=== PATIENT | female | born 1980 | race Caucasian/White ===

== ENCOUNTER → 2020-11-03 | Outpatient (CLI) | payer OTHER ==
--- NOTE | 2020-11-03 11:46 | REPVR ---
PROCEDURE INFORMATION: Exam: MR Head Without and With Contrast, Sella Exam date and time: 11/03/2020 11:20 AM Age: 40 years old Clinical indication: Abnormal findings; Abnormal lab test; Syncope and collapse; Patient HX: Elevated prolactin, dizziness, abn TECHNIQUE: Imaging protocol: MR of the head without and with intravenous contrast. Exam focused on the sella. Contrast material: PROHANCE; Contrast volume: 19 ml; Contrast route: INTRAVENOUS (IV); COMPARISON: No relevant prior studies available. FINDINGS: Limitations: The study is mildly limited due to patient motion artifact. Brain: There is no acute intracranial hemorrhage, cerebral edema, or midline shift. No restricted diffusion is present to suggest acute infarction. No enhancing lesions were identified after the administration of contrast. Cerebral ventricles: Unremarkable. No Ventriculomegaly. Paranasal sinuses: Moderate mucosal thickening is present in the left sphenoid sinus. There is minimal mucosal thickening in the maxillary and ethmoid sinuses. Pituitary gland and sella: Unremarkable. Pituitary gland is normal. No microadenoma is identified. Bones/joints: Unremarkable. IMPRESSION: 1. Mildly limited exam due to motion artifact 2. No acute abnormality. Electronically signed by: John Kulkarni On 11/03/2020 11:47:05 AM
== END ==
LOC: M PLARAD 09:08
PROVIDERS: ATTEND Obstetrics & Gynecology
DX: E22.1 Hyperprolactinemia (principal)

== ENCOUNTER 2023-06-20 12:58 | Day surgery (SDC) | payer OTHER ==
[~2023-06-20] VITALS: Ht 157.5 cm; Wt 100.2 kg
[~2023-06-20 12:58] MED LIST: BIOT1000 PO; CETI-24 PO; FAMO40TA3 PO; MAGN64TASA PO; NORE5TAB PO; NOXI1TAB PO; NS 1,000 ML IV ONE; PANT40TA29 PO; PHEN-239 PO; VITA250T18 PO
[2023-06-20] MEDS ORDERED: fentaNYL 100 MCG/2 ML INJECTION As Ordered ONE (14:30)
[2023-06-20] MEDS ORDERED: ONDANSETRON 4MG 2ML VIAL As Ordered ONE (14:31)
[2023-06-20] MEDS ORDERED: propofoL 200 MG/20 ML VIAL As Ordered ONE ×2 (14:32→14:50)
[2023-06-20] MEDS ORDERED: LIDOCAINE 2% 100MG/5ML SDV (FOR ANES.) As Ordered ONE (14:32)
[2023-06-20 14:54] VITALS: TEMP 97.9
[2023-06-20 15:20] VITALS: BP 125/76; O2SAT 99
== END 2023-06-20 15:33 | disposition home or self-care (01) ==
LOC: M OPP 12:58
PROVIDERS: ATTEND Internal Medicine Gastroenterology
DX: K29.70 Gastritis, unspecified, without bleeding (principal); K20.0 Eosinophilic esophagitis; K31.A0 Gastric intestinal metaplasia, unspecified; Z79.1 Long term (current) use of non-steroidal anti-inflammatories (NSAID); Z79.899 Other long term (current) drug therapy; Z91.010 Allergy to peanuts
CPT/HCPCS: 43239; 88305; 91035; J2405; J3010

== ENCOUNTER 2023-07-23 14:19 | Outpatient (CLI) | payer OTHER ==
[~2023-07-23] VITALS: Ht 157.5 cm; Wt 99.4 kg
[~2023-07-23 14:19] MED LIST changes: +ALBUTEROL SULFATE 2.5MG/0.5ML INH NEB SOLN INH PRN; +EPINEPHrine INJ 1 MG/ML 1ML AMP IM PRN; -NS 1,000 ML IV ONE; +diphenhydrAMINE 50MG/ML VIAL IV PRN; +methylPREDNISolone 125MG 2ML VIAL IV PRN
[2023-07-23 14:40] VITALS: BP 132/73; O2SAT 98
[2023-07-23] MEDS ORDERED: NS 1,000 ML IV SCH (15:00)
[2023-07-23] MEDS ORDERED: diphenhydrAMINE 50MG CAP PO ONE (15:00)
[2023-07-23] MEDS ORDERED: ACETAMINOPHEN TAB 650MG DOSE (2X325MG) PO ONE (15:00)
[2023-07-23] MEDS ORDERED: FERRIC CARBOXYMALTOSE INJ 750 MG in NS 250 ML (>50kg) IV ONE ×3 (15:00)
[2023-07-23 17:59] VITALS: BP 114/69; O2SAT 100
== END 2023-07-23 18:00 ==
LOC: M INFU 14:19
PROVIDERS: ATTEND Family Medicine
DX: D50.9 Iron deficiency anemia, unspecified (principal); Z91.010 Allergy to peanuts
CPT/HCPCS: 96365; J1439

== ENCOUNTER → 2023-08-06 | Outpatient (CLI) | payer OTHER ==
[~2023-08-06] VITALS: Ht 157.5 cm; Wt 98.8 kg
[~2023-08-06] MED LIST changes: +ACETAMINOPHEN 650MG PO PRIOR TO INFUSION PO ONE; +FERRIC CARBOXYMALTOSE INJ 750 MG in NS 250 ML (>50kg) IV ONE; +NS 1,000 ML IV SCH; +diphenhydrAMINE 50MG PO PRIOR TO INFUSION PO ONE
[2023-08-06 14:55] VITALS: BP 128/72; O2SAT 97
== END ==
LOC: M INFU 14:43
PROVIDERS: ATTEND Family Medicine
DX: D50.9 Iron deficiency anemia, unspecified (principal); Z53.8 Procedure and treatment not carried out for other reasons

== ENCOUNTER → 2025-04-12 | Outpatient (CLI) | payer OTHER ==
[~2025-04-12] MED LIST changes: -ACETAMINOPHEN 650MG PO PRIOR TO INFUSION PO ONE; -ALBUTEROL SULFATE 2.5MG/0.5ML INH NEB SOLN INH PRN; -BIOT1000 PO; +BIOT10002 PO; -EPINEPHrine INJ 1 MG/ML 1ML AMP IM PRN; -FERRIC CARBOXYMALTOSE INJ 750 MG in NS 250 ML (>50kg) IV ONE; +METHACHOLINE KIT (6 VIAL.NEB PREMIX) INH ONE; -NS 1,000 ML IV SCH; -PHEN-239 PO; +PHEN37.511 PO; -diphenhydrAMINE 50MG PO PRIOR TO INFUSION PO ONE; -diphenhydrAMINE 50MG/ML VIAL IV PRN; -methylPREDNISolone 125MG 2ML VIAL IV PRN
== END ==
LOC: M CARPUL 03-22 07:53
PROVIDERS: ATTEND Internal Medicine Critical Care Medicine
DX: J45.40 Moderate persistent asthma, uncomplicated (principal)
CPT/HCPCS: 94070; 95070; J7674